=== PATIENT | female | born 1995 | race Caucasian/White ===

== ENCOUNTER → 2023-06-30 | Outpatient (CLI) | payer OTHER ==
[2023-06-30 13:22] LABS: HEMATOCRIT 37.6 % (36.0-47.0); HEMOGLOBIN 12.9 g/dl (12.0-15.5); MEAN CORPUSCULAR HEMOGLOBIN 29.8 pg (27.0-33.0); MEAN CORPUSCULAR HGB CONC 34.3 g/dl (32.0-36.5); MEAN CORPUSCULAR VOLUME 86.8 fl (80.0-96.0); PLATELET COUNT, AUTOMATED 215 10^3/uL (150-450); RED BLOOD COUNT 4.33 10^6/uL (4.00-5.40)
[2023-06-30 14:20] LABS: HIV 1&2 SCREEN NEGATIVE (NEGATIVE)
[2023-06-30 14:28] LABS: HEPATITIS C VIRUS ABY INDEX 0.05 INDEX (<0.8)
[2023-06-30 14:54] LABS: GC DNA AMPLIFICATION NEGATIVE (NEGATIVE)
== END ==
LOC: M PLALAB 10:48
PROVIDERS: ATTEND Advanced Practice Midwife
DX: Z34.01 Encounter for supervision of normal first pregnancy, first trimester (principal)

== ENCOUNTER → 2023-06-30 | Outpatient (REF) | payer OTHER | LOC: M PLALAB 10:10 | PROVIDERS: ATTEND Advanced Practice Midwife | DX: Z53.9 Procedure and treatment not carried out, unspecified reason (principal) ==

== ENCOUNTER → 2023-09-30 | Outpatient (CLI) | payer OTHER ==
[2023-09-30 14:17] LABS: HEMATOCRIT 33.7 % (36.0-47.0); HEMOGLOBIN 11.4 g/dl (12.0-15.5); MEAN CORPUSCULAR HEMOGLOBIN 30.6 pg (27.0-33.0); MEAN CORPUSCULAR HGB CONC 33.8 g/dl (32.0-36.5); MEAN CORPUSCULAR VOLUME 90.6 fl (80.0-96.0); PLATELET COUNT, AUTOMATED 190 10^3/uL (150-450); RED BLOOD COUNT 3.72 10^6/uL (4.00-5.40); WHITE BLOOD COUNT 6.4 10^3/uL (4.0-10.0)
[2023-09-30 15:52] LABS: CHLAMYDIA DNA AMPLIFICATION NEGATIVE (NEGATIVE); GC DNA AMPLIFICATION NEGATIVE (NEGATIVE)
== END ==
LOC: M PLALAB 10:13
PROVIDERS: ATTEND Obstetrics & Gynecology
DX: Z34.92 Encounter for supervision of normal pregnancy, unspecified, second trimester (principal)

== ENCOUNTER → 2023-12-07 | Outpatient (REF) | payer OTHER | LOC: M PLALAB 10:32 | PROVIDERS: ATTEND Obstetrics & Gynecology | DX: Z36.89 Encounter for other specified antenatal screening (principal); Z3A.35 35 weeks gestation of pregnancy ==

== ENCOUNTER 2023-12-30 06:34 | Inpatient (IN) | payer OTHER ==
[~2023-12-30] VITALS: Ht 170.2 cm; Wt 86.1 kg
[2023-12-30] VITALS (7 sets, daily range): BP systolic 111–131; BP diastolic 59–80; TEMP 96.6; O2SAT 96–99
[2023-12-30] MEDS ORDERED: LR 1,000 ML IV SCH (07:05)
[2023-12-30 08:31] LABS: HEMOGLOBIN 11.7 g/dl (12.0-15.5); MEAN CORPUSCULAR HGB CONC 34.4 g/dl (32.0-36.5); MEAN CORPUSCULAR VOLUME 87.2 fl (80.0-96.0); PLATELET COUNT, AUTOMATED 198 10^3/uL (150-450); WHITE BLOOD COUNT 8.2 10^3/uL (4.0-10.0)
[2023-12-30] MEDS: BICITRA 30ML SOLN UDC PO ONE (08:54)
[2023-12-30] MEDS: LACTATED RINGER'S 1000 ML IV STA (08:55)
[2023-12-30] MEDS: ceFAZolin SOD 2 GM in IV 1 EA IV ONE (08:55)
[2023-12-30] MEDS ORDERED: OXYTOCIN 30UNITS IN 0.9% NaCl 500ML IV BAG As Ordered ONE (09:29)
[2023-12-30] MEDS ORDERED: fentaNYL 100 MCG/2 ML INJECTION As Ordered ONE (09:29)
[2023-12-30] MEDS ORDERED: MORPHINE PRES-FREE INJ 10 MG/10 ML VIAL As Ordered ONE (09:29)
[2023-12-30] MEDS ORDERED: PHENYLephrine 500MCG 5ML (100MCG/ML) SYRINGE As Ordered ONE (09:42)
[2023-12-30] MEDS ORDERED: KETOROLAC 60MG 2ML VIAL As Ordered ONE (09:46)
[2023-12-30] MEDS ORDERED: oxyCODONE 5MG TAB PO PRN ×3 (10:40→10:50)
[2023-12-30] MEDS ORDERED: SIMETHICONE 80MG CHEW TAB PO PRN (10:40)
[2023-12-30] MEDS ORDERED: ONDANSETRON 4MG 2ML VIAL IV PRN (10:40)
[2023-12-30] MEDS ORDERED: RHOGAM 300MCG (1500IU) INJ IM SCH (10:40)
[2023-12-30] MEDS ORDERED: METOCLOPRAMIDE INJ 10MG/2ML VIAL IV PRN ×2 (10:40→10:50)
[2023-12-30] MEDS ORDERED: DOCUSATE SODIUM 100MG CAPSULE PO PRN (10:40)
[2023-12-30] MEDS ORDERED: NALOXONE INJ 0.4MG/1ML VIAL IV PRN ×2 (10:50)
[2023-12-30] MEDS ORDERED: **NOTE PATIENT COMMENT** MISC XX SCH (10:50)
[2023-12-30] MEDS ORDERED: COLA100C5 PO (10:50)
[2023-12-30] MEDS ORDERED: ACET-683 PO (10:50)
[2023-12-30] MEDS ORDERED: OXYC-517 PO (10:50)
[2023-12-30] MEDS ORDERED: fentaNYL 100 MCG/2 ML INJECTION IV PRN (10:50)
[2023-12-30] MEDS ORDERED: IBUP-1022 PO (10:50)
[2023-12-30] MEDS ORDERED: MEPERIDINE 25 MG/ML 1ML VIAL IV PRN (10:50)
[2023-12-30] MEDS: SLF 3 ML SYR IV SCH (10:50)
[2023-12-30] MEDS ORDERED: HYDROMORPHONE HCL 0.5 MG/ 0.5 ML SYRINGE As Ordered ONE (11:01)
[2023-12-30] MEDS: OXYTOCIN DRIP 30 UNITS in IV 1 EA IV SCH (11:04)
[2023-12-30] MEDS: HYDROMORPHONE HCL 0.5 MG/ 0.5 ML SYRINGE IV PRN (11:07)
[2023-12-30] MEDS ORDERED: ONDANSETRON 4MG 2ML VIAL As Ordered ONE (11:28)
[2023-12-30] MEDS: ONDANSETRON 4MG 2ML VIAL IV PRN (11:29)
[2023-12-30] MEDS: diphenhydrAMINE 50MG/ML VIAL IV PRN (12:46)
[2023-12-30] MEDS: ACETAMINOPHEN 500 MG TAB PO SCH (12:57)
[2023-12-30] MEDS: KETOROLAC 30 MG/ML 1ML VIAL IV SCH (17:48)
[2023-12-31 02:00] VITALS: BP 123/62; O2SAT 99
[2023-12-31 05:59] VITALS: BP 130/63; O2SAT 98
[2023-12-31 07:24] LABS: HEMATOCRIT 29.7 % (36.0-47.0); HEMOGLOBIN 9.9 g/dl (12.0-15.5); MEAN CORPUSCULAR HEMOGLOBIN 29.3 pg (27.0-33.0); MEAN CORPUSCULAR HGB CONC 33.3 g/dl (32.0-36.5); MEAN CORPUSCULAR VOLUME 87.9 fl (80.0-96.0); PLATELET COUNT, AUTOMATED 174 10^3/uL (150-450); RED BLOOD COUNT 3.38 10^6/uL (4.00-5.40); WHITE BLOOD COUNT 7.7 10^3/uL (4.0-10.0)
[2023-12-31] MEDS: PRENATAL VITAMINS CHEWABLE TABLET PO SCH (09:08)
[2023-12-31 10:00] VITALS: BP 136/69; O2SAT 99
[2023-12-31] MEDS: IBUPROFEN 600MG TAB PO SCH (10:59)
[2023-12-31 14:00] VITALS: BP 114/58; O2SAT 98
[2023-12-31 17:42] VITALS: BP 125/64; O2SAT 98
[2023-12-31 22:00] VITALS: BP 122/67; O2SAT 98
[2024-01-01 02:00] VITALS: BP 112/61; O2SAT 97
[2024-01-01 06:00] VITALS: BP 122/72; O2SAT 99
[2024-01-01] MEDS: MEASLES,MUMPS,RUBELLA VACCINE INJ (MMR-II) SC.IMMUN ONE (06:47)
== END 2024-01-01 15:10 | disposition home or self-care (01) | DRG 540 ==
LOC: M LDI 06:34 → M OBS 12:00
PROVIDERS: ADMIT Obstetrics & Gynecology; ATTEND Obstetrics & Gynecology
PROC: 10D00Z1 Extraction of Products of Conception, Low, Open Approach (ICD-10-PCS; principal; 2023-12-30 08:30)
DX: O32.1XX0 Maternal care for breech presentation, not applicable or unspecified (principal); Z37.0 Single live birth; Z3A.39 39 weeks gestation of pregnancy

== ENCOUNTER → 2024-08-17 | Outpatient (CLI) | payer OTHER ==
[~2024-08-17] MED LIST: ACET-683 PO; COLA100C5 PO; IBUP-1022 PO; OXYC-517 PO
[2024-08-17 14:11] LABS: HEMOGLOBIN 13.1 g/dl (12.0-15.5); MEAN CORPUSCULAR HEMOGLOBIN 30.1 pg (27.0-33.0); MEAN CORPUSCULAR HGB CONC 34.5 g/dl (32.0-36.5); MEAN CORPUSCULAR VOLUME 87.4 fl (80.0-96.0); PLATELET COUNT, AUTOMATED 217 10^3/uL (150-450); RED BLOOD COUNT 4.35 10^6/uL (4.00-5.40); WHITE BLOOD COUNT 5.7 10^3/uL (4.0-10.0)
[2024-08-17 15:19] LABS: GC DNA AMPLIFICATION NEGATIVE (NEGATIVE)
[2024-08-17 16:30] LABS: HIV 1&2 SCREEN NEGATIVE (NEGATIVE)
[2024-08-17 17:42] LABS: HEPATITIS C VIRUS ABY INDEX < 0.02 INDEX (<0.8)
== END ==
LOC: M PLALAB 09:44
PROVIDERS: ATTEND Nurse Practitioner Family
DX: Z34.81 Encounter for supervision of other normal pregnancy, first trimester (principal); Z3A.00 Weeks of gestation of pregnancy not specified

== ENCOUNTER → 2024-09-07 | Outpatient (CLI) | payer OTHER | LOC: M PLALAB 15:23 | PROVIDERS: ATTEND Nurse Practitioner Family | DX: Z34.81 Encounter for supervision of other normal pregnancy, first trimester (principal) ==

== ENCOUNTER → 2024-10-24 | Outpatient (CLI) | payer OTHER | LOC: M WHC 09:28 | PROVIDERS: ATTEND Nurse Practitioner Family | DX: Z34.82 Encounter for supervision of other normal pregnancy, second trimester (principal); Z3A.18 18 weeks gestation of pregnancy ==

== ENCOUNTER → 2025-01-04 | Outpatient (CLI) | payer OTHER ==
[2025-01-04 14:09] LABS: HEMATOCRIT 34.9 % (36.0-47.0); HEMOGLOBIN 11.9 g/dl (12.0-15.5); MEAN CORPUSCULAR HEMOGLOBIN 30.5 pg (27.0-33.0); MEAN CORPUSCULAR HGB CONC 34.1 g/dl (32.0-36.5); MEAN CORPUSCULAR VOLUME 89.5 fl (80.0-96.0); PLATELET COUNT, AUTOMATED 217 10^3/uL (150-450); WHITE BLOOD COUNT 8.4 10^3/uL (4.0-10.0)
[2025-01-04 14:16] LABS: GLUCOSE CHALLENGE TEST 1 HOUR 137 MG/DL (LESS THAN 140)
[2025-01-04 15:20] LABS: Trichomonas vaginalis (AMP) NOT DETECTED (NEGATIVE)
[2025-01-04 15:44] LABS: GC DNA AMPLIFICATION NEGATIVE (NEGATIVE)
[2025-01-04 16:47] LABS: HIV 1&2 SCREEN NEGATIVE (NEGATIVE)
[2025-01-04 16:53] LABS: HEPATITIS C VIRUS ABY INDEX 0.03 INDEX (<0.8)
== END ==
LOC: M PLALAB 10:25
PROVIDERS: ATTEND Obstetrics & Gynecology
DX: Z34.82 Encounter for supervision of other normal pregnancy, second trimester (principal)

== ENCOUNTER → 2025-01-13 | Outpatient (CLI) | payer OTHER | LOC: M WHC 09:28 | PROVIDERS: ATTEND Obstetrics & Gynecology | DX: O43.109 Malformation of placenta, unspecified, unspecified trimester (principal); Z3A.30 30 weeks gestation of pregnancy ==